=== PATIENT | female | born 1975 | race Caucasian/White ===

== ENCOUNTER → 2016-12-10 | Outpatient (REF) | payer OTHER ==
[2016-12-10 16:02] LABS: FREE T4 1.4 NG/DL (0.76-1.46)
== END ==
LOC: M LABDRAW1 15:24
PROVIDERS: ATTEND Physician Assistant Medical
DX: E89.0 Postprocedural hypothyroidism (principal)

== ENCOUNTER → 2016-12-31 | Outpatient (REF) | payer OTHER | LOC: M SFHCWAGY 11:37 | PROVIDERS: ATTEND Nurse Practitioner Women's Health | DX: Z12.4 Encounter for screening for malignant neoplasm of cervix (principal); Z11.3 Encounter for screening for infections with a predominantly sexual mode of transmission; R87.610 Atypical squamous cells of undetermined significance on cytologic smear of cervix (ASC-US); N89.8 Other specified noninflammatory disorders of vagina | CPT/HCPCS: 87070; 87491; 87591; G0123 ==

== ENCOUNTER → 2017-02-09 | Outpatient (REF) | payer OTHER ==
[2017-02-09 16:29] LABS: FREE T4 1.24 NG/DL (0.76-1.46)
== END ==
LOC: M LABDRAW1 14:34
PROVIDERS: ATTEND Physician Assistant Medical
DX: E89.0 Postprocedural hypothyroidism (principal)

== ENCOUNTER → 2017-02-09 | Outpatient (REF) | payer OTHER | LOC: M SFHCWAGY 14:40 | PROVIDERS: ATTEND Nurse Practitioner Women's Health | DX: R87.618 Other abnormal cytological findings on specimens from cervix uteri (principal) ==

== ENCOUNTER → 2017-06-09 | Outpatient (REF) | payer OTHER ==
[2017-06-09 16:30] LABS: FREE T4 1.54 NG/DL (0.76-1.46)
== END ==
LOC: M LABDRAW1 15:37
PROVIDERS: ATTEND Physician Assistant Medical
DX: E89.0 Postprocedural hypothyroidism (principal)

== ENCOUNTER → 2018-01-01 | Outpatient (REF) | payer OTHER ==
[2018-01-05 14:13] LABS: HPV HYBRID CAPTURE II Positive (Negative)
== END ==
LOC: M SFHCWAGY 11:51
DX: Z12.4 Encounter for screening for malignant neoplasm of cervix (principal)

== ENCOUNTER → 2018-02-18 | Outpatient (REF) | payer OTHER ==
[2018-02-18 12:59] LABS: FREE T4 1.01 NG/DL (0.76-1.46)
== END ==
LOC: M LABDRAW1 11:44
DX: E89.0 Postprocedural hypothyroidism (principal)
CPT/HCPCS: 84443

== ENCOUNTER → 2018-03-25 | Outpatient (CLI) | payer OTHER | LOC: M WHC 13:43 | DX: D25.9 Leiomyoma of uterus, unspecified (principal); R68.81 Early satiety; N92.6 Irregular menstruation, unspecified | CPT/HCPCS: 76830 ==

== ENCOUNTER → 2018-04-21 | Outpatient (REF) | payer OTHER | LOC: M LAB REF 12:31 | DX: J02.9 Acute pharyngitis, unspecified (principal) ==

== ENCOUNTER → 2018-04-23 | Outpatient (CLI) | payer OTHER ==
[2018-04-23 17:00] LABS: FREE T4 1.02 NG/DL (0.76-1.46)
== END ==
LOC: M WUC 13:33
DX: E89.0 Postprocedural hypothyroidism (principal)
CPT/HCPCS: 84443

== ENCOUNTER → 2018-06-29 | Outpatient (REF) | payer OTHER ==
[2018-06-29 17:36] LABS: BASO # 0.1 10^3/uL (0.0-0.2); BASO % 1.2 % (0.0-1.0); EOS # 0.1 10^3/uL (0.0-0.50); HEMATOCRIT 38.4 % (36.0-47.0); HEMOGLOBIN 12.8 g/dl (12.0-15.5); IMMATURE GRANULOCYTE % 0.4 % (0-3.0); LYMPH # 1.2 10^3/uL (1.5-4.5); LYMPH % 15.2 % (24.0-44.0); MEAN CORPUSCULAR HEMOGLOBIN 30.6 pg (27.0-33.0); MEAN CORPUSCULAR HGB CONC 33.3 g/dl (32.0-36.5); MEAN CORPUSCULAR VOLUME 91.9 fl (80.0-96.0); MONO # 0.6 10^3/uL (0.0-0.8); MONO % 6.9 % (0.0-5.0); NEUTROPHILS # 6.1 10^3/uL (1.8-7.7); NEUTROPHILS % 75.3 % (36.0-66.0); PLATELET COUNT, AUTOMATED 288 10^3/uL (150-450); RED BLOOD COUNT 4.18 10^6/uL (4.00-5.40); RED CELL DISTRIBUTION WIDTH 12.8 % (11.5-14.5); WHITE BLOOD COUNT 8.1 10^3/uL (4.0-10.0)
[2018-06-29 18:07] LABS: FOLLICLE STIMULATING HORMONE < 0.3 mIU/mL; LUTEINIZING HORMONE < 0.1 mIU/mL
== END ==
LOC: M SFHCWAGY 14:35
DX: R23.2 Flushing (principal); R61 Generalized hyperhidrosis

== ENCOUNTER → 2018-08-23 | Outpatient (REF) | payer OTHER ==
[2018-08-23 13:57] LABS: FREE T4 1.15 NG/DL (0.76-1.46)
== END ==
LOC: M LABDRAW1 12:13
DX: E89.0 Postprocedural hypothyroidism (principal)

== ENCOUNTER → 2018-12-27 | Outpatient (REF) | payer OTHER ==
[2018-12-27 14:18] LABS: ALBUMIN 3.6 GM/DL (3.2-5.2); ALT/SGPT 29 U/L (12-78); BILIRUBIN,TOTAL 0.1 MG/DL (0.2-1.0); BLOOD UREA NITROGEN 12 MG/DL (7-18); CALCIUM LEVEL 8.7 MG/DL (8.5-10.1); CARBON DIOXIDE LEVEL 26 MEQ/L (21-32); CHLORIDE LEVEL 106 MEQ/L (98-107); GLOMERULAR FILTRATION RATE > 60.0 (>58); GLUCOSE, FASTING 76 MG/DL (70-100); POTASSIUM SERUM 4.5 MEQ/L (3.5-5.1); SODIUM LEVEL 139 MEQ/L (136-145); TOTAL PROTEIN 6.9 GM/DL (6.4-8.2)
== END ==
LOC: M SFHCPLAZ 10:08
PROVIDERS: ATTEND Nurse Practitioner Adult Health
DX: Z00.00 Encounter for general adult medical examination without abnormal findings (principal)

== ENCOUNTER → 2019-02-21 | Outpatient (REF) | payer OTHER ==
[2019-02-21 17:06] LABS: FREE T4 1.36 NG/DL (0.76-1.46); THYROID STIMULATING HORMONE 0.27 uIU/ML (0.358-3.740)
== END ==
LOC: M LABDRAW1 15:34 → M LAB REF 15:34
PROVIDERS: ATTEND Nurse Practitioner Family
DX: E89.0 Postprocedural hypothyroidism (principal)

== ENCOUNTER → 2019-02-28 | Outpatient (REF) | payer OTHER ==
[2019-03-02 14:26] LABS: HPV HYBRID CAPTURE II Negative (Negative)
== END ==
LOC: M SFHCWAGY 11:37
PROVIDERS: ATTEND Nurse Practitioner Women's Health
DX: Z12.4 Encounter for screening for malignant neoplasm of cervix (principal)
CPT/HCPCS: 87624; G0123

== ENCOUNTER → 2019-02-28 | Outpatient (CLI) | payer OTHER ==
--- NOTE | 2019-02-28 14:07 | REPMRS ---
Patient History The patient states she had a clinical breast exam in 02/2019. Patient is nulliparous. Family history of breast cancer under age 50 in maternal aunt. Took hormonal contraceptives for 26 years. Digital Woman Screen Mammo: February 28, 2019 - Exam #: [id number] Bilateral CC and MLO view(s) were taken. Technologist: Sosa Castellanos, Technologist Prior study comparison: February 26, 2018, digital woman screen mammo performed at [facility]. March 21, 2016, digital woman screen mammo performed at [facility]. September 22, 2012, digital woman screen mammo performed at [facility]. FINDINGS: There are scattered fibroglandular densities. There has been no change in the appearance of the mammogram from the prior studies. There is a mild amount of scattered fibroglandular density which is fairly symmetric. There is no interval development of dominant mass, architectural distortion, or clustered microcalcification suggestive of malignancy. 3-D tomosynthesis shows no additional findings. Assessment: BI-RADS/ACR category 1 mammogram. Negative Mammogram. Recommendation Routine screening mammogram of both breasts in 1 year (for women over age 40). This patient's Lifetime Breast Cancer RIsk is estimated at 19.5 %. This mammogram was interpreted with the aid of an FDA-approved computer-aided dectection system. Electronically Signed By: Georges Hernandez MD 02/28/19 [id number]
== END ==
LOC: M WHC 11:12
PROVIDERS: ATTEND Nurse Practitioner Women's Health
DX: Z12.31 Encounter for screening mammogram for malignant neoplasm of breast (principal); Z92.0 Personal history of contraception

== ENCOUNTER 2019-07-07 03:14 | Emergency (ER) | payer OTHER ==
[~2019-07-07] VITALS: Ht 162.6 cm; Wt 63.6 kg
[2019-07-07] MEDS ORDERED: ZOFR4TAB16 PO (03:18)
[2019-07-07] MEDS ORDERED: LEVO125T4 PO (03:18)
[2019-07-07] MEDS ORDERED: NS 1,000 ML IV ONE (03:45)
[2019-07-07] MEDS ORDERED: ONDANSETRON 4MG/2ML VIAL (J2405) IV ONE (03:45)
[2019-07-07] MEDS: MORPHINE 4 MG/ML 1ML VIAL/SYRINGE (J2270) IV PRN ×2 (04:00→05:21)
[2019-07-07 04:40] LABS: BLOOD UREA NITROGEN 6 MG/DL (7-18); CALCIUM LEVEL 8.8 MG/DL (8.5-10.1); CARBON DIOXIDE LEVEL 24 MEQ/L (21-32); CHLORIDE LEVEL 101 MEQ/L (98-107); CREATININE FOR GFR 0.65 MG/DL (0.55-1.30); GLOMERULAR FILTRATION RATE > 60.0 (>58); GLUCOSE, FASTING 110 MG/DL (70-100); POTASSIUM SERUM 3.6 MEQ/L (3.5-5.1); SODIUM LEVEL 135 MEQ/L (136-145)
[2019-07-07 04:41] LABS: ALT/SGPT 28 U/L (12-78); BILIRUBIN,DIRECT 0.1 MG/DL (0.0-0.2); BILIRUBIN,TOTAL 0.3 MG/DL (0.2-1.0); TOTAL PROTEIN 6.4 GM/DL (6.4-8.2)
[2019-07-07 04:42] LABS: ALBUMIN 3.2 GM/DL (3.2-5.2); LIPASE 44 U/L (73-393)
[2019-07-07 04:48] LABS: HCG, SERUM QUALITATIVE NEGATIVE (NEGATIVE)
[2019-07-07 04:49] LABS: HEMATOCRIT 43.7 % (36.0-47.0); HEMOGLOBIN 15.1 g/dl (12.0-15.5); WHITE BLOOD COUNT 4.9 10^3/uL (4.0-10.0)
[2019-07-07 04:50] LABS: MEAN CORPUSCULAR HEMOGLOBIN 32.1 pg (27.0-33.0); MEAN CORPUSCULAR HGB CONC 34.6 g/dl (32.0-36.5); PLATELET COUNT, AUTOMATED 166 10^3/uL (150-450)
[2019-07-07 05:05] LABS: ATYPICAL LYMPH 2 % (0-5); BASOPHILS 1 % (0-4); LYMPHOCYTES 5 % (16-52); METAMYELOCYTES 3 % (0-0); MONOCYTES 7 % (0-8); NEUTROPHILS 73 % (35-75); PLATELET CLUMPS SMALL AMT; PLATELET ESTIMATE NORMAL (NORMAL)
[2019-07-07 05:06] LABS: TOXIC VACUOLATION 1+
[2019-07-07] MEDS ORDERED: ISOVUE-370 76% 100ML VIAL (Q9967) As Ordered ONE (05:28)
--- NOTE | 2019-07-07 06:21 | REPVR ---
EXAM: CT Abdomen and Pelvis With Contrast EXAM DATE/TIME: 07/07/2019 5:42 AM CLINICAL HISTORY: 43 years old, female; Abdominal pain; Generalized; Additional info: Diverticulitis v colitis TECHNIQUE: Imaging protocol: Axial computed tomography images of the abdomen and pelvis with intravenous contrast. Coronal and sagittal reformatted images were created and reviewed. Radiation optimization: All CT scans at this facility use at least one of these dose optimization techniques: automated exposure control; mA and/or kV adjustment per patient size (includes targeted exams where dose is matched to clinical indication); or iterative reconstruction. Contrast material: ISOVUE 370;Contrast volume: 100 ml;Contrast route: IV; COMPARISON: CT ABD PELVIS W/O FOL BY WIT 10/04/2013 9:04 AM FINDINGS: Liver: There is 1.6 x 1.3 cm hypoattenuation in the medial segment of the left hepatic lobe abutting the falciform ligament and 9 x 6 mm hypodensity in the lateral segment of the left hepatic lobe abutting the falciform ligament likely representing normal variant perfusion defects. This is unchanged since the prior exam. Gallbladder and bile ducts: There is no biliary ductal dilatation. Pancreas: The pancreatic head and uncinate process are heterogeneous with slight hypoattenuation. There is no pancreatic ductal dilatation. Spleen: Normal. No splenomegaly. Adrenals: There is a 1.4 x 1.3 cm left adrenal gland nodule in the lateral limb (axial image 36). Kidneys and ureters: Normal. No hydronephrosis. Stomach and bowel: There is apparent diffuse colonic wall thickening with more significant thickening seen in the distal ascending and transverse colon with pericolonic stranding and edema. Appendix: No evidence of appendicitis. Intraperitoneal space: There is a small amount of free pelvic fluid. Vasculature: Normal. No abdominal aortic aneurysm. Lymph nodes: Normal. No enlarged lymph nodes. Bladder: The urinary bladder is not distended limiting its evaluation. Reproductive: Unremarkable as visualized. Bones/joints: No acute fracture. No dislocation. Soft tissues: Unremarkable. IMPRESSION: 1. Pancolitis most significantly involving the ascending and transverse colon. 2. No diverticular disease seen. No appendicitis seen. 3. Small amount of free pelvic fluid could be physiologic or reactive. 4. Heterogeneity and mild hypoattenuation in the pancreatic head and uncinate process. Underlying pathology cannot be excluded. Correlate clinically. MRI of the pancreas contrast may be obtained for further evaluation. 5. 1.4 x 1.3 cm indeterminate left adrenal gland nodule in the lateral limb, new finding since 10/04/2013. Further characterization with MRI is suggested. Electronically signed by: Wade Marti On 07/07/2019 06:20:39 AM
[2019-07-07] MEDS ORDERED: CIPR-249 PO (08:35)
[2019-07-07 08:59] VITALS: BP 129/91
[2019-07-07] MEDS ORDERED: CIPROFLOXACIN 500 MG TAB PO ONE (09:00)
--- NOTE | 2019-07-10 20:38 | ED PDOC ---
Post-Departure Follow-Up boy hayden faxed formal report of ct abd/p for fu Diana Sanford MD Jul 10, 2019 20:38
== END 2019-07-07 09:05 | disposition home or self-care (01) ==
LOC: M ED 03:14
DX: A02.0 Salmonella enteritis (principal); K51.019 Ulcerative (chronic) pancolitis with unspecified complications; E05.00 Thyrotoxicosis with diffuse goiter without thyrotoxic crisis or storm; Z79.899 Other long term (current) drug therapy; Z88.2 Allergy status to sulfonamides
CPT/HCPCS: 74177; 80048; 80076; 83605; 83690; 84703; 85025; 87507; 93041; 96361; 96374; 96375; 99284; J2270; J2405; Q9967

== ENCOUNTER → 2019-08-22 | Outpatient (REF) | payer OTHER ==
[~2019-08-22] MED LIST: CIPR-249 PO; LEVO125T4 PO; ZOFR4TAB16 PO
[2019-08-22 17:03] LABS: FREE T4 1.36 NG/DL (0.76-1.46); THYROID STIMULATING HORMONE 0.039 uIU/ML (0.358-3.740)
== END ==
LOC: M LABDRAW1 15:56
PROVIDERS: ATTEND Nurse Practitioner Family
DX: E89.0 Postprocedural hypothyroidism (principal)

== ENCOUNTER → 2019-12-23 | Outpatient (REF) | payer OTHER ==
[2019-12-23 14:32] LABS: FREE T4 1.42 NG/DL (0.76-1.46); THYROID STIMULATING HORMONE 0.754 uIU/ML (0.358-3.740)
== END ==
LOC: M LABDRAW1 12:53
PROVIDERS: ATTEND Nurse Practitioner Family
DX: E89.0 Postprocedural hypothyroidism (principal)

== ENCOUNTER → 2020-02-08 | Outpatient (CLI) | payer OTHER | LOC: M CARPUL 08:25 | PROVIDERS: ATTEND Nurse Practitioner Adult Health | DX: Z53.9 Procedure and treatment not carried out, unspecified reason (principal) ==

== ENCOUNTER → 2020-05-02 | Outpatient (CLI) | payer OTHER ==
[2020-05-02 14:45] LABS: FREE T4 1.29 NG/DL (0.76-1.46); THYROID STIMULATING HORMONE 1.53 uIU/ML (0.358-3.740)
== END ==
LOC: M PLALAB 10:58
PROVIDERS: ATTEND Nurse Practitioner Family
DX: E89.0 Postprocedural hypothyroidism (principal)

== ENCOUNTER → 2020-05-29 | Outpatient (CLI) | payer OTHER ==
--- NOTE | 2020-05-29 12:28 | REPMRS ---
Patient History The patient states she had a clinical breast exam in May 2020.Family history of breast cancer under age 50 in maternal aunt. Took hormonal contraceptives for 26 years. 3D TOMOSYNTHESIS WAS PERFORMED. The [employer]eline Real lifetime risk for breast cancer is 19.2%. VOLOTFA HUGO B. Digital Woman Screen Mammo: May 29, 2020 - Exam #: [id number] Bilateral CC and MLO view(s) were taken. Technologist: Yamile Arechiga, Technologist Prior study comparison: February 28, 2019, bilateral digital woman screen mammo performed at [facility]. February 26, 2018, digital woman screen mammo performed at [facility]. FINDINGS: The breast tissue is heterogeneously dense. This may lower the sensitivity of mammography. There has been no change in the appearance of the mammogram from the prior studies. There is a moderate amount of residual fibroglandular tissue which is fairly symmetric. There is no interval development of dominant mass, areas of architectural distortion, or clustered microcalcification typical of malignancy. Assessment: BI-RADS/ACR category 1 mammogram. Negative Mammogram. Recommendation Routine screening mammogram in 1 year (for women over age 40). This mammogram was interpreted with the aid of an FDA-approved computer-aided dectection system. Electronically Signed By: Ayan Granados MD 05/29/20 [id number]
== END ==
LOC: M WHC 09:37
PROVIDERS: ATTEND Nurse Practitioner Women's Health
DX: Z12.31 Encounter for screening mammogram for malignant neoplasm of breast (principal)

== ENCOUNTER → 2020-10-31 | Outpatient (CLI) | payer OTHER ==
[2020-10-31 11:14] LABS: FREE T4 1.23 NG/DL (0.76-1.46); THYROID STIMULATING HORMONE 0.946 uIU/ML (0.358-3.740)
== END ==
LOC: M PLALAB 09:06
PROVIDERS: ATTEND Nurse Practitioner Family
DX: E89.0 Postprocedural hypothyroidism (principal)

== ENCOUNTER → 2021-08-01 | Outpatient (REF) | payer OTHER | LOC: M WUC 11:13 | PROVIDERS: ATTEND Physician Assistant | DX: N39.0 Urinary tract infection, site not specified (principal) ==

== ENCOUNTER 2021-10-08 08:49 | Emergency (ER) | payer OTHER ==
[~2021-10-08] VITALS: Ht 162.6 cm; Wt 66.5 kg
--- OUTSIDE RECORDS SUMMARY | 2021-10-08 08:55 | CCD | Continuity of Care Document ---
Author Author Mireya DONNELLY P.AMary Organization Unknown Address [address] [place] [address] [place] [address] Phone [phone] Care Team Providers Care Valet Name Role Phone Jeff De Jesus MD [facility] [phone] Problems Active Problems Provider Date Cystitis Talia Diaz Onset: 2009 Social History Type Date Description Comments Sex Unknown ETOH Use Occasionally consumes alcohol Tobacco Use Start: Unknown No quit 2006 Tobacco Use Start: Unknown The Patient Has Never Vaped Smoking Status Reviewed: 08/01/21 The Patient Has Never Vaped Allergies, Adverse Reactions, Alerts Active Allergies Criticality Reaction | Severity Comments Date Sulfa Unable to assess criticality rash 06/04/2010 Medications Active Medications SIG Qnty Indications Ordering Provide r Date Macrobid 100mg Capsules 1 cap by mouth twice a day for 5 days with food 10caps Jeff basurto JR., M.D. 08/05/2021 Diflucan 150mg Tablets 1 tab by mouth, may repeat in 3-5 days if needed 2tabs N39.0 Jeff De Jesus JR., M.D. 08/01/2021 Synthroid 137mcg Tablets ever y day Unknown History Medications Cephalexin 500mg Tablets 1 tab by mouth twice daily x 7 days 14tabs N39.0 Carolin Chavez JR. 08/01/2021 - 08/05/2021 Pyridium 200mg Tablets 1 tab by mouth three times a day after meals for 2 days 6tabs N39.0 Jeff De Jesus JR., M.D. 08/01/2021 - 08/03/2021 Immunizations Description No Information Available Vital Signs Date Vital Result Comment 08/01/2021 9:09am BP Systolic 141 mmHg BP Diastolic 86 mmHg Heart Rate 67 /min Respiratory Rate 16 /min O2 % BldC Oximetry 99 % Body Temperature 97.9 F Weight 135.00 lb Height 64 inches 5'4" BMI (Body Mass Index) 23.2 kg/m2 Pain Level 6 04/21/2018 8:49am BP Systolic 134 mmHg BP Diastolic 87 mmHg Heart Rate 86 /min Respiratory Rate 18 /min O2 % BldC Oximetry 98 % Body Temperature 97.7 F Weight 160.00 lb Height 64 inches 5'4" BMI (Body Mass Index) 27.5 kg/m2 Pain Level 6 Results Test Acquired Date Facility Test Result H/L Range Note Laboratory test finding 08/01/2021 [id number] [place], [place] [id number] [phone] Urine Culture FULL REPORT IN L <SEE NOTE> Normal 1 1 FULL REPORT IN LAB NOTES ([facility] W and [facility]). ORGANISM 1: STAPHYLOCOCCUS LUGDUNENSIS COLONY COUNT >100,000 ORGANISM 1: STAPHYLOCOCCUS LUGDUNENSIS STAPHYLOCOCCUS LUGDUNENSIS: REACTION ICR (INDUCIBLE CC RESISTANCE) IV ICR TEST RESULT TETRACYCLINE PO 250 mg qid <=1 S PENICILLIN G IV 1 mu q6H >=0.5 R PENICILLIN G IV 1 mu q6h >=0.5 R PENICILLIN G PO 250mg q6h fasting >=0.5 R TRIMETHOPRIM/SULFAMETHOXAZOLE IV 160mg TMP & 800mg SMXq6h <=10 S TRIMETHOPRIM/SULFAMETHOXAZOLE PO Bactrim DS Bid <=10 S ERYTHROMYCIN IV 500mg q6h <=0.25 S ERYTHROMYCIN PO 500mg q6h <=0.25 S GENTAMICIN IV 80mg q8h <=0.5 S CLINDAMYCIN IV 600mg q6h 0.25 S CLINDAMYCIN PO 150mg q6h 0.25 S NITROFURANTOIN PO 100mg BID <=16 S OXACILLIN IV 500mg q6h >=4 R VANCOMYCIN IV 500mg q8h <=0.5 S LINEZOLID (ZYVOX) IV 600MG Q12HR 1 S LINEZOLID (ZYVOX) PO 600MG Q12HR 1 S An isolate with a (+) POSITIVE ICR test is considered CLINDAMYCIN RESISTANT; however, clindamycin may still be effective in some patients. An isolate with a (-) NEGATIVE ICR test is considered CLIDAMYCIN SENSITIVE. Procedures Date Code Description Status 08/01/2021 32062 Office/Outpatient New [facility] 30 -44 Minutes Completed Medical Devices Description No Information Available Encounters Type Date Location Provider Dx Diagnosis Office Visit 08/01/2021 8:25a Main Office Talia Renee N3 9.0 Urinary tract infection, site not specified Assessments Date Code Description Provider 08/01/2021 N39.0 Urinary tract infection, site no t specified Talia Renee Plan of Treatment No Information Available Functional Status Description No Information Available Mental Status Description No Information Available Referrals Description No Information Available
--- OUTSIDE RECORDS SUMMARY | 2021-10-08 08:55 | CCD | Continuity of Care Document ---
Author Author Mireya DONNELLY.Elsie Organization Unknown Address [address] [place] [address] Phone [phone] Care Team Providers Care Flour Blender Name Role Phone Jeff De Jesus MD [facility] [phone] Problems Active Problems Provider Date Cystitis Talia [...] SIG Qnty Indications Ordering Provide r Date Cephalexin 500mg Tablets 1 tab by mouth twice daily x 7 days 14tabs N39.0 Carolin Chavez JR. 08/01/2021 Pyridium 200mg Tablets 1 tab by mouth three times a day after meals for 2 days 6tabs N39.0 Jeff De Jesus JR., M.D. 08/01/2021 Diflucan 150mg Tablets 1 tab by mouth, may repeat in 3-5 days if needed 2tabs N39.0 Jeff De Jesus JR., M.D. 08/01/2021 Synthroid 137mcg Tablets ever y day Unknown Immunizations Description No Information Available Vital Signs [...] H/L Range Note Laboratory test finding 08/01/2021 [facility] [address] [place] [address] [phone] Urine Culture <pending> Procedures Date Code Description Status 08/01/2021 41321 Office/Outpatient New On license of [facility] 30 -44 Minutes Completed Medical Devices Description [...]
--- OUTSIDE RECORDS SUMMARY | 2021-10-08 08:56 | CCD | Continuity of Care Document ---
Author Author Mireya DONNELLY.Elsie Organization Unknown Address [address] [place] [address] Phone [phone] Care Team Providers Care Order Management Specialist Name Role Phone Jeff De Jesus MD [facility] [phone] Problems Active Problems Provider Date Cystitis Talia [...] H/L Range Note Laboratory test finding 08/01/2021 [facility] [address] [place] [address] [phone] Urine Culture <pending> Procedures Date Code Description Status 08/01/2021 66262 Office/Outpatient New [facility] 30 -44 Minutes Completed Medical Devices Description [...]
--- OUTSIDE RECORDS SUMMARY | 2021-10-08 08:56 | CCD ---
Author Author [facility] Organization [facility] Address Unknown Phone Unavailable Care Team Providers Care Cable Engineer Outside Plant Name Role Phone LUÍS, B SRIKANTH INSPECTOR FIBROUS WALLBOARD Unavailable Unavailable LUÍS, B SRIKANTH INSPECTOR FIBROUS WALLBOARD Unavailable Unavailable LUÍS, B SRIKANTH INSPECTOR FIBROUS WALLBOARD Unavailable Unavailable LUÍS, B SRIKANTH INSPECTOR FIBROUS WALLBOARD Unavailable Unavailable LUÍS, B SRIKANTH INSPECTOR FIBROUS WALLBOARD Unavailable Unavailable LUÍS, B SRIKANTH INSPECTOR FIBROUS WALLBOARD Unavailable Unavailable LUÍS, B SRIKANTH INSPECTOR FIBROUS WALLBOARD Unavailable Unavailable LUÍS, B SRIKANTH INSPECTOR FIBROUS WALLBOARD Unavailable Unavailable LUÍS, B SRIKANTH INSPECTOR FIBROUS WALLBOARD Unavailable Unavailable LUÍS, B SRIKANTH INSPECTOR FIBROUS WALLBOARD Unavailable Unavailable LUÍS, B SRIKANTH INSPECTOR FIBROUS WALLBOARD Unavailable Unavailable LUÍS, B SRIKANTH INSPECTOR FIBROUS WALLBOARD Unavailable Unavailable LUÍS, B SRIKANTH INSPECTOR FIBROUS WALLBOARD Unavailable Unavailable LUÍS, B SRIKANTH INSPECTOR FIBROUS WALLBOARD Unavailable Unavailable LUÍS, B SRIKANTH INSPECTOR FIBROUS WALLBOARD Unavailable Unavailable LUÍS, B SRIKANTH INSPECTOR FIBROUS WALLBOARD Unavailable Unavailable LUÍS, B SRIKANTH INSPECTOR FIBROUS WALLBOARD Unavailable Unavailable LUÍS, B SRIKANTH INSPECTOR FIBROUS WALLBOARD Unavailable Unavailable LUÍS, B SRIKANTH INSPECTOR FIBROUS WALLBOARD Unavailable Unavailable LUÍS, B SRIKANTH INSPECTOR FIBROUS WALLBOARD Unavailable Unavailable LUÍS, B SRIKANTH INSPECTOR FIBROUS WALLBOARD Unavailable Unavailable LUÍS, B SRIKANTH INSPECTOR FIBROUS WALLBOARD Unavailable Unavailable LUÍS, B SRIKANTH INSPECTOR FIBROUS WALLBOARD Unavailable Unavailable LUÍS, B SRIKANTH INSPECTOR FIBROUS WALLBOARD Unavailable Unavailable LUÍS, B SRIKANTH INSPECTOR FIBROUS WALLBOARD Unavailable Unavailable LUÍS, B SRIKANTH INSPECTOR FIBROUS WALLBOARD Unavailable Unavailable LUÍS, B SRIKANTH INSPECTOR FIBROUS WALLBOARD Unavailable Unavailable LUÍS, B SRIKANTH INSPECTOR FIBROUS WALLBOARD Unavailable Unavailable LUÍS, B SRIKANTH INSPECTOR FIBROUS WALLBOARD Unavailable Unavailable LUÍS, B SRIKANTH INSPECTOR FIBROUS WALLBOARD Unavailable Unavailable LUÍS, B SRIKANTH INSPECTOR FIBROUS WALLBOARD Unavailable Unavailable LUÍS, B SRIKANTH INSPECTOR FIBROUS WALLBOARD Unavailable Unavailable LUÍS, B SRIKANTH INSPECTOR FIBROUS WALLBOARD Unavailable Unavailable LUÍS, B SRIKANTH INSPECTOR FIBROUS WALLBOARD Unavailable Unavailable LUÍS, B SRIKANTH INSPECTOR FIBROUS WALLBOARD Unavailable Unavailable LUÍS, B SRIKANTH INSPECTOR FIBROUS WALLBOARD Unavailable Unavailable LUÍS, B SRIKANTH INSPECTOR FIBROUS WALLBOARD Unavailable Unavailable LUÍS, B SRIKANTH INSPECTOR FIBROUS WALLBOARD Unavailable Unavailable LÍUS, B SRIKANTH INSPECTOR FIBROUS WALLBOARD Unavailable Unavailable LUÍS, B SRIKANTH INSPECTOR FIBROUS WALLBOARD Unavailable Unavailable LUÍS, B SRIKANTH INSPECTOR FIBROUS WALLBOARD Unavailable Unavailable LUÍS, B SRIKANTH INSPECTOR FIBROUS WALLBOARD Unavailable Unavailable LUÍS, B SRIKANTH INSPECTOR FIBROUS WALLBOARD Unavailable Unavailable LUÍS, B SRIKANTH INSPECTOR FIBROUS WALLBOARD Unavailable Unavailable LUÍS, B SRIKANTH INSPECTOR FIBROUS WALLBOARD Unavailable Unavailable LUÍS, B SRIKANTH INSPECTOR FIBROUS WALLBOARD Unavailable Unavailable LUÍS, B SRIKANTH INSPECTOR FIBROUS WALLBOARD Unavailable Unavailable LUÍS, B SRIKANTH INSPECTOR FIBROUS WALLBOARD Unavailable Unavailable LUÍS, B SRIKANTH INSPECTOR FIBROUS WALLBOARD Unavailable Unavailable LUÍS, B SRIKANTH INSPECTOR FIBROUS WALLBOARD Unavailable Unavailable LUÍS, B SRIKANTH INSPECTOR FIBROUS WALLBOARD Unavailable Unavailable LUÍS, B SRIKANTH INSPECTOR FIBROUS WALLBOARD Unavailable Unavailable LUÍS, B SRIKANTH INSPECTOR FIBROUS WALLBOARD Unavailable Unavailable LUÍS, B SRIKANTH INSPECTOR FIBROUS WALLBOARD Unavailable Unavailable LUÍS, B SRIKANTH INSPECTOR FIBROUS WALLBOARD Unavailable Unavailable LUÍS, B SRIKANTH INSPECTOR FIBROUS WALLBOARD Unavailable Unavailable LUÍS, B SRIKANTH INSPECTOR FIBROUS WALLBOARD Unavailable Unavailable LUÍS, B SRIKANTH INSPECTOR FIBROUS WALLBOARD Unavailable Unavailable LUÍS, B SRIKANTH INSPECTOR FIBROUS WALLBOARD Unavailable Unavailable LUÍS, B SRIKANTH INSPECTOR FIBROUS WALLBOARD Unavailable Unavailable LUÍS, B SRIKANTH INSPECTOR FIBROUS WALLBOARD Unavailable Unavailable LUÍS, B SRIKANTH INSPECTOR FIBROUS WALLBOARD Unavailable Unavailable CONY, DANIEL PA Unavailable Unavailable CONY, DANIEL PA Unavailable Unavailable CONY, DANIEL PA Unavailable Unavailable CONY, DANIEL PA Unavailable Unavailable CONY, DANIEL PA Unavailable Unavailable CONY, DANIEL PA Unavailable Unavailable CONY, DANIEL PA Unavailable Unavailable CONY, DANIEL PA Unavailable Unavailable CONY, DANIEL PA Unavailable Unavailable CONY, DANIEL PA Unavailable Unavailable CONY, DANIEL PA Unavailable Unavailable CONY, DANIEL PA Unavailable Unavailable CONY, DANIEL PA Unavailable Unavailable CONY, DANIEL PA Unavailable Unavailable CONY, DANIEL PA Unavailable Unavailable CONY, DANIEL PA Unavailable Unavailable CONY, DANIEL PA Unavailable Unavailable CONY, DANIEL PA Unavailable Unavailable CONY, DANIEL PA Unavailable Unavailable CONY, DANIEL PA Unavailable Unavailable CONY, DANIEL PA Unavailable Unavailable CONY, DANIEL PA Unavailable Unavailable CONY, DANIEL PA Unavailable Unavailable CONY, DANIEL PA Unavailable Unavailable CONY, DANIEL PA Unavailable Unavailable CONY, DANIEL PA Unavailable Unavailable CONY, DANIEL PA Unavailable Unavailable CONY, DANIEL PA Unavailable Unavailable CONY, DANIEL PA Unavailable Unavailable CONY, DANIEL PA Unavailable Unavailable CONY, DANIEL PA Unavailable Unavailable CONY, DANIEL PA Unavailable Unavailable CONY, DANIEL PA Unavailable Unavailable CONY, DANIEL PA Unavailable Unavailable CONY, DANIEL PA Unavailable Unavailable CONY, DANIEL PA Unavailable Unavailable CHRISTIANO, MIGUELITO CARIN PA-C Unavailable Unavailable CHRISTIANO, MIGUELITO CARIN PA-C Unavailable Unavailable CHRISTIANO, MIGUELITO CARIN PA-C Unavailable Unavailable CHRISTIANO, MIGUELITO CARIN PA-C Unavailable Unavailable CHRISTIANO, MIGUELITO CARIN PA-C Unavailable Unavailable CHRISTIANO, MIGUELITO CARIN PA-C Unavailable Unavailable CHRISTIANO, MIGUELITO CARIN PA-C Unavailable Unavailable CHRISTIANO, MIGUELITO CARIN PA-C Unavailable Unavailable CHRISTIANO, MIGUELITO CARIN PA-C Unavailable Unavailable CHRISTIANO, MIGUELTIO CARIN PA-C Unavailable Unavailable Re-disclosure Warning The records that you are about to access may contain information from federally-assisted alcohol or drug abuse programs. If such information is present, then the following federally mandated warning applies: This information has been disclosed to you from records protected by federal confidentiality rules (42 CFR part 2). The federal rules prohibit you from making any further disclosure of this information unless further disclosure is expressly permitted by the written consent of the person to whom it pertains or as otherwise permitted by 42 CFR part 2. A general authorization for the release of medical or other information is NOT sufficient for this purpose. The Federal rules restrict any use of the information to criminally investigate or prosecute any alcohol or drug abuse patient.The records that you are about to access may contain highly sensitive health information, the redisclosure of which is protected by Article 27-F of the [place] State Public Health law. If you continue you may have access to information: Regarding HIV / AIDS; Provided by facilities licensed or operated by the [facility] Office of Mental Health; or Provided by the [facility] Office for People With Developmental Disabilities. If such information is present, then the following [facility] mandated warning applies: This information has been disclosed to you from confidential records which are protected by state law. State law prohibits you from making any further disclosure of this information without the specific written consent of the person to whom it pertains, or as otherwise permitted by law. Any unauthorized further disclosure in violation of state law may result in a fine or senior care sentence or both. A general authorization for the release of medical or other information is NOT sufficient authorization for further disc losure. Family History Family Member Name Family Member Gender Family Member Status Date o f Status Description Data Source(s) Unknown Female Problem [facility] ([facility]) Unknown Female Problem [facility] ([facility]) Unknown Unknown Problem [facility] ([facility]) matrnal aunt #1 Unknown Unknown Problem [facility] ([facility]) Encounters Encounter Providers Location Date Indications Data Source(s ) Outpatient Attender: DANIEL wyatt 08/01/2021 08:25:00 AM EDT [facility] ([facility] Outpatient Attender: CARIN ALVARADO PA-C 12/28/2020 03:36:00 PM [facility] Outpatient Attender: CARIN ALVARADO PA-C 12/20/2020 04:23:00 PM [facility] Outpatient Attender: CARIN ALVARADO PA-C 12/12/2020 04:21:00 PM [facility] Outpatient Attender: CARIN ALVARADO PA-C 11/28/2020 04:03:00 PM [facility] Outpatient Attender: CARIN ALVARADO PA-C 11/20/2020 04:24:00 PM [facility] Outpatient Attender: CARIN ALVARADO PA-C 11/09/2020 04:06:00 PM [facility] Outpatient Attender: SRIKANTH STALEY NP Physical Therapy 07:30:00 AM EST [facility] ([facility]) Outpatient Attender: CARIN ALVARADO PA-C 10/25/2020 04:45:00 PM [facility] Outpatient Attender: CARIN ALVARADO PA-C 10/12/2020 04:17:00 PM [facility] Outpatient Attender: CARIN ALVARADO PA-C 10/03/2020 10:24:00 AM [facility] Outpatient Attender: CARIN ALVARADO PA-C 09/26/2020 04:29:00 PM [facility] Outpatient Attender: CARIN ALVARADO PA-C 09/18/2020 04:47:00 PM [facility] Outpatient Attender: CARIN ALVARADO PA-C 09/12/2020 04:00:00 PM [facility] Outpatient Attender: CARIN ALVARADO PA-C 09/06/2020 10:42:00 AM [facility] Outpatient Attender: CARIN ALVARADO PA-C 08/21/2020 04:20:00 PM [facility] Outpatient Attender: CARIN ALVARADO PA-C 08/14/2020 04:02:00 PM [facility] Outpatient Attender: CARIN ALVARADO PA-C 08/06/2020 04:00:00 PM [facility] Outpatient Attender: CARIN ALVARADO PA-C 08/02/2020 04:25:00 PM [facility] Immunizations Vaccine Date Status Description Data Source(s) COVID-19 VACCINE Moderna 12/20/2020 12:00:00 AM EST completed [facility] Vaccine Series Complete: NOThis Data was Submitted to [facility] Via [employer]. INFLUENZA VIRUS VACCINE QUADRIVAL (6 MOS AND UP)/PF 08/09/2020 12:00:00 AM EDT completed [facility] Medications Medication Brand Name Start Date Product Form Dose Route Admi nistrative Instructions Pharmacy Instructions Status Indications Reaction Description Data Source(s) 60 mcg (15 mcg x 4)/0.5 mL 08/14/2021 12:00:00 AM EDT syring e 0 INJECT DIRECTED INJECT DIRECTED SOLD: 08/14/2021 [facility] NITROFURANTOIN, MACROCRYSTALS 25 MG / Ni trofurantoin, Monohydrate 75 MG Oral Capsule [Macrobid] Macrobid 08/05/2021 12:00:00 AM EDT ORAL active [facility] ([facility]) Phenazopyridine hydrochloride 200 MG Oral Tablet [Pyridium] Pyridium 08/01/2021 12:00:00 AM EDT ORAL completed [facility] ([facility]) Fluconazole 150 MG Oral Tablet [Diflucan] Diflucan 08/01/2021 1 2:00:00 AM EDT ORAL active [facility] ([facility], [facility]) Cephalexin 500 MG Oral Tablet Cephalexin 08/01/2021 12:00:00 AM EDT ORAL completed [facility] ([facility]) Insurance Providers Payer name Policy type / Coverage type Policy ID Covered alliance party ID Covered alliance party's relationship to cage Policy Cage Plan Information [employer] [id number] Self [employer] Risk [employer] [facility] [employer] Compensation [id number] Self [id number] R [id number] S [id number] R [id number] S [id number] ANSI-Commercial [id number] [facility] [id number] Umr (pr) Commercial [id number] Self [id number] [employer] (pr) [facility] Part B [id number] Self [id number] ANSI-Commercial [id number] ANSI-Commercial [id number] (pr) Commercial [id number] Self [id number] ANSI-Commercial [id number] Umr (pr) Commercial [id number] Self [id number] Umr/c/[employer] Part B [id number] Self [id number] [facility] [id number] SP [id number] [facility] [id number] SP [id number] [facility] [id number] SP [id number] [employer] [id number] SP [id number] [employer] (pr) Commercial [id number] Self [id number] [employer] (pr) Commercial [id number] Self [employer] W/C [id number] SP [id number] [employer] W/C [id number] SP [id number] [employer] [id number] Self [facility] [id number] SP [id number] R [id number] S [id number] SELF PAY UNAVAILABLE S UNAVAILA BLE Problems, Conditions, and Diagnoses Code Display Name Description Problem Type Effective Dates Data Source(s) F43.8 Other reactions to severe stress OTHER REACTIONS TO SEVERE STRESS Diagnosis 12/28/2020 03:36:00 PM [facility] Surgeries/Procedures Procedure Description Date Indications Data Source(s) OFFICE OUTPATIENT NEW 30 MINUTES 08/01/2021 12:00:00 A M EDT [facility] ([facility]) Results ID Date Data Source [id number] 08/01/2021 09:19:00 AM EDT [facility] ([facility]) Name Value Range Interpretation Code Description Data Ioana rce(s) Supporting Document(s) Bacteria identified in Urine by Culture Laboratory test result [facility] ([facility]) <content>FULL REPORT IN LAB NOTES ([facility] a nd [facility]).</content>
<content></content>
<content>ORGANISM 1: STAPHYLOCOCCUS LUGDUNENSIS</content>
<content></content>
<content>COLONY COUNT >100,000</content>
<content></content>
<content></content>
<content> ORGANISM 1: STAPHYLOCOCCUS LUGDUNENSIS</content>
<content></content>
<content>STAPHYLOCOCCUS LUGDUNENSIS: REACTION</content>
<content>ICR (INDUCIBLE CC RESISTANCE) IV ICR TEST RESULT</content>
<content>TETRACYCLINE PO 250 mg qid <=1 S</content>
<content>PENICILLIN G IV 1 mu q6H >=0.5 R</content>
<content>PENICILLIN G IV 1 mu q6h >=0.5 R</content>
<content>PENICILLIN G PO 250mg q6h fasting >=0.5 R</content>
<content>TRIMETHOPRIM/SULFAMETHOXAZOLE IV 160mg TMP & 800mg SMXq6h <=10 S</content>
<content>TRIMETHOPRIM/SULFAMETHOXAZOLE PO Bactrim DS Bid <=10 S</content>
<content>ERYTHROMYCIN IV 500mg q6h <=0.25 S</content>
<content>ERYTHROMYCIN PO 500mg q6h <=0.25 S</content>
<content>GENTAMICIN IV 80mg q8h <=0.5 S</content>
<content>CLINDAMYCIN IV 600mg q6h 0.25 S</content>
<content>CLINDAMYCIN PO 150mg q6h 0.25 S</content>
<content>NITROFURANTOIN PO 100mg BID <=16 S</content>
<content>OXACILLIN IV 500mg q6h >=4 R</content>
<content>VANCOMYCIN IV 500mg q8h <=0.5 S</content>
<content>LINEZOLID (ZYVOX) IV 600MG Q12HR 1 S</content>
<content>LINEZOLID (ZYVOX) PO 600MG Q12HR 1 S</content>
<content> An isolate with a (+) POSITIVE ICR test is considered</content>
<content>CLINDAMYCIN RESISTANT; however, clindamycin may still</content>
<content>be effective in some patients.</content>
< content>An isolate with a (-) NEGATIVE ICR test is considered</content>
<content>CLIDAMYCIN SENSITIVE.</content>
<content></content> ID Date Data Source [id number] 10/31/2020 09:13:00 AM EST [facility] ([facility] Name Value Range Interpretation Code Description Data Ioana rce(s) Supporting Document(s) Thyrotropin [Units/volume] in Serum or Plasma by Detec tion limit <= 0.05 mIU/L 0.946 uIU/ML 0.358-3.740 [facility] ([facility] <content>note:<nlbl:demographic_changed> </content>
<content></content> Thyroxine (T4) free [Mass/volume] in Serum or Plasma 1.23 ng/dL 0.76- 1.46 [facility] <content>note:<nlbl:demographic_changed> </content>
<content></content> Procedure Social History Code Duration Value Status Description Data Source(s ) Smoking 11/02/2020 12:00:00 AM EST Patient is a former smoker completed Patient is a former smoker [facility] ([facility] Vital Signs ID Date Data Source UNK Name Value Range Interpretation Code Description Data Source(s) Oxygen saturation in Arterial blood by Pulse oximetry 99 % 99 % [facility] ([facility]) Body temperature 97.9 [degF] 97.9 [degF] [facility] ([facility]) Body height 64 [in_i] 64 [in_i] [facility] ([facility]) 5'4" Body weight 135.00 [lb_av] 135.00 [lb_av] MEDEN T ([facility]) Body mass index (BMI) [Ratio] 23.2 kg/m2 23.2 k g/m2 [facility] ([facility]) Systolic blood pressure 141 mm[Hg] 141 mm[Hg] M [facility] ([facility]) Diastolic blood pressure 86 mm[Hg] 86 mm[Hg] [facility] ([facility]) Heart rate 67 /min 67 /min [facility] ([facility]) Respiratory rate 16 /min 16 /min [facility] ( [facility], [facility]) Systolic blood pressure 108 mm[Hg] 108 mm[Hg] M EDENT ([facility] Diastolic blood pressure 76 mm[Hg] 76 mm[Hg] [facility] ([facility] Heart rate 76 /min 76 /min [facility] ([facility] Body temperature 96.6 [degF] 96.6 [degF] [facility] ([facility] Body height 64 [in_i] 64 [in_i] [facility] ([facility] 5'4" Body weight 143.00 [lb_av] 143.00 [lb_av] MED[facility] T ([facility] Body mass index (BMI) [Ratio] 24.5 kg/m2 24.5 k g/m2 [facility] ([facility]
[2021-10-08] MEDS ORDERED: PRAZ1CAP PO (09:17)
[2021-10-08] MEDS ORDERED: MELA5TAB10 PO (09:17)
--- OUTSIDE RECORDS SUMMARY | 2021-10-08 10:23 | CCD ---
Author Author [facility] Organization [facility] Address Unknown Phone Unavailable Care Team Providers Care Investigation Clerk Name Role Phone LUÍS, B SRIKANTH BUNCH MAKER HAND Unavailable Unavailable LUÍS, B SRIKANTH BUNCH MAKER HAND Unavailable Unavailable LUÍS, B SRIKANTH BUNCH MAKER HAND Unavailable Unavailable LUÍS, B SRIKANTH BUNCH MAKER HAND Unavailable Unavailable LUÍS, B SRIKANTH BUNCH MAKER HAND Unavailable Unavailable LUÍS, B SRIKANTH BUNCH MAKER HAND Unavailable Unavailable LUÍS, B SRIKANTH BUNCH MAKER HAND Unavailable Unavailable LUÍS, B SRIKANTH BUNCH MAKER HAND Unavailable Unavailable LUÍS, B SRIKANTH BUNCH MAKER HAND Unavailable Unavailable LUÍS, B SRIKANTH BUNCH MAKER HAND Unavailable Unavailable LUÍS, B SRIKANTH BUNCH MAKER HAND Unavailable Unavailable LUÍS, B SRIKANTH BUNCH MAKER HAND Unavailable Unavailable LUÍS, B SRIKANTH BUNCH MAKER HAND Unavailable Unavailable LUÍS, B SRIKANTH BUNCH MAKER HAND Unavailable Unavailable LUÍS, B SRIKANTH BUNCH MAKER HAND Unavailable Unavailable LUÍS, B SRIKANTH BUNCH MAKER HAND Unavailable Unavailable LUÍS, B SRIKANTH BUNCH MAKER HAND Unavailable Unavailable LUÍS, B SRIKANTH BUNCH MAKER HAND Unavailable Unavailable LUÍS, B SRIKANTH BUNCH MAKER HAND Unavailable Unavailable LUÍS, B SRIKANTH BUNCH MAKER HAND Unavailable Unavailable LUÍS, B SRIKANTH BUNCH MAKER HAND Unavailable Unavailable LUÍS, B SRIKANTH BUNCH MAKER HAND Unavailable Unavailable LUÍS, B SRIKANTH BUNCH MAKER HAND Unavailable Unavailable LUÍS, B SRIKANTH BUNCH MAKER HAND Unavailable Unavailable LUÍS, B SRIKANTH BUNCH MAKER HAND Unavailable Unavailable LUÍS, B SRIKANTH BUNCH MAKER HAND Unavailable Unavailable LUÍS, B SRIKANTH BUNCH MAKER HAND Unavailable Unavailable LUÍS, B SRIKANTH BUNCH MAKER HAND Unavailable Unavailable LUÍS, B SRIKANTH BUNCH MAKER HAND Unavailable Unavailable LUÍS, B SRIKANTH BUNCH MAKER HAND Unavailable Unavailable LUÍS, B SRIKANTH BUNCH MAKER HAND Unavailable Unavailable LUÍS, B SRIKANTH BUNCH MAKER HAND Unavailable Unavailable LUÍS, B SRIKANTH BUNCH MAKER HAND Unavailable Unavailable LUÍS, B SRIKANTH BUNCH MAKER HAND Unavailable Unavailable LUÍS, B SRIKANTH BUNCH MAKER HAND Unavailable Unavailable LUÍS, B SRIKANTH BUNCH MAKER HAND Unavailable Unavailable LUÍS, B SRIKANTH BUNCH MAKER HAND Unavailable Unavailable LUÍS, B SRIKANTH BUNCH MAKER HAND Unavailable Unavailable LUÍS, B SRIKANTH BUNCH MAKER HAND Unavailable Unavailable LUÍS, B SRIKANTH BUNCH MAKER HAND Unavailable Unavailable LUÍS, B SRIKANTH BUNCH MAKER HAND Unavailable Unavailable LUÍS, B SRIKANTH BUNCH MAKER HAND Unavailable Unavailable LUÍS, B SRIKANTH BUNCH MAKER HAND Unavailable Unavailable LUÍS, B SRIKANTH BUNCH MAKER HAND Unavailable Unavailable LUÍS, B SRIKANTH BUNCH MAKER HAND Unavailable Unavailable LUÍS, B SRIKANTH BUNCH MAKER HAND Unavailable Unavailable LUÍS, B SRIKANTH BUNCH MAKER HAND Unavailable Unavailable LUÍS, B SRIKANTH BUNCH MAKER HAND Unavailable Unavailable LUÍS, B SRIKANTH BUNCH MAKER HAND Unavailable Unavailable LUÍS, B SRIKANTH BUNCH MAKER HAND Unavailable Unavailable LUÍS, B SRIKANTH BUNCH MAKER HAND Unavailable Unavailable LUÍS, B SRIKANTH BUNCH MAKER HAND Unavailable Unavailable LUÍS, B SRIKANTH BUNCH MAKER HAND Unavailable Unavailable LUÍS, B SRIKANTH BUNCH MAKER HAND Unavailable Unavailable LUÍS, B SRIKANTH BUNCH MAKER HAND Unavailable Unavailable LUÍS, B SRIKANTH BUNCH MAKER HAND Unavailable Unavailable LUÍS, B SRIKANTH BUNCH MAKER HAND Unavailable Unavailable LUÍS, B SRIKANTH BUNCH MAKER HAND Unavailable Unavailable LUÍS, B SRIKANTH BUNCH MAKER HAND Unavailable Unavailable LUÍS, B SRIKANTH BUNCH MAKER HAND Unavailable Unavailable LUÍS, B SRIKANTH BUNCH MAKER HAND Unavailable Unavailable LUÍS, B SRIKANTH BUNCH MAKER HAND Unavailable Unavailable CONY, DANIEL PA Unavailable Unavailable [...] Unavailable CHRISTIANO, MIGUELITO CARIN PA-C Unavailable Unavailable Re-disclosure Warning The [...] by facilities licensed or operated by the [facility] Office of Mental Health; or Provided by the [facility] Office for People With Developmental Disabilities. If such information is present, then the following [facility] mandated warning applies: This information has been [...] law may result in a fine or custodial sentence or both. A general authorization for the release of medical or other information is NOT sufficient authorization for further disc losure. Family History Family Member Name Family Member Gender Family Member Status Date o f Status Description Data Source(s) Unknown Female Problem [facility] ([facility]) Unknown Female Problem [facility] ([facility]) Unknown Unknown Problem [facility] ([facility]) matrnal aunt #1 Unknown Unknown Problem [facility] ([facility]) Encounters Encounter Providers Location Date Indications Data Source(s ) Outpatient Attender: DANIEL wyatt 08/01/2021 08:25:00 AM EDT [facility] ([facility]) Outpatient Attender: CARIN ALVARADO PA-C 12/28/2020 03:36:00 PM [facility] Outpatient Attender: CARIN ALVARADO PA-C 12/20/2020 04:23:00 PM [facility] Outpatient Attender: CARIN ALVARADO PA-C 12/12/2020 04:21:00 PM [facility] Outpatient Attender: CARIN ALVARADO PA-C 11/28/2020 04:03:00 PM [facility] Outpatient Attender: CARIN ALVARADO PA-C 11/20/2020 04:24:00 PM [facility] Outpatient Attender: CARIN ALVARADO PA-C 11/09/2020 04:06:00 PM [facility] Outpatient Attender: SRIKANTH STALEY NP Physical Therapy 07:30:00 AM EST [facility] ([facility]) Outpatient Attender: CARIN ALVARADO PA-C 10/25/2020 04:45:00 PM [facility] Outpatient Attender: CARIN ALVARADO PA-C 10/12/2020 04:17:00 PM [facility] Outpatient Attender: CARIN ALVARADO PA-C 10/03/2020 10:24:00 AM [facility] Outpatient Attender: CARIN ALVARADO PA-C 09/26/2020 04:29:00 PM [facility] Outpatient Attender: CARIN ALVARADO PA-C 09/18/2020 04:47:00 PM [facility] Outpatient Attender: CARIN ALVARADO PA-C 09/12/2020 04:00:00 PM [facility] Outpatient Attender: CARIN ALVARADO PA-C 09/06/2020 10:42:00 AM [facility] Outpatient Attender: CARIN ALVARADO PA-C 08/21/2020 04:20:00 PM [facility] Outpatient Attender: CARIN ALVARADO PA-C 08/14/2020 04:02:00 PM [facility] Outpatient Attender: CARIN ALVARADO PA-C 08/06/2020 04:00:00 PM [facility] Outpatient Attender: CARIN ALVARADO PA-C 08/02/2020 04:25:00 PM [facility] Immunizations Vaccine Date Status Description Data Source(s) COVID-19 VACCINE Moderna 12/20/2020 12:00:00 AM EST completed [facility] Vaccine Series Complete: NOThis Data was Submitted to [facility] Via [employer]. INFLUENZA VIRUS VACCINE QUADRIVAL (6 MOS AND [...] 08/05/2021 12:00:00 AM EDT ORAL active [facility] ([facility], [facility]) Phenazopyridine hydrochloride 200 MG Oral Tablet [Pyridium] Pyridium 08/01/2021 12:00:00 AM EDT ORAL completed [facility] ([facility], [facility]) Fluconazole 150 MG Oral Tablet [Diflucan] Diflucan 08/01/2021 1 2:00:00 AM EDT ORAL active [facility] ([facility], [facility]) Cephalexin 500 MG Oral Tablet Cephalexin 08/01/2021 12:00:00 AM EDT ORAL completed [facility] ([facility], [facility]) Insurance Providers Payer name Policy type / Coverage type Policy ID Covered democrat ID Covered democrat's relationship to cage Policy Cage Plan Information [employer] [id number] Self [employer] Risk [employer] [facility] Workers Compensation [id number] Self [id number] R [id number] S [id number] R [id number] S [id number] ANSI-Commercial [id number] R [facility] [id number] Umr (pr) Commercial [id number] Self [id number] [employer] (pr) [facility] Part B [id number] Self [id number] ANSI-Commercial [id number] ANSI-Commercial [id number] (pr) Commercial [id number] Self [id number] ANSI-Commercial [id number] Umr (pr) Commercial [id number] Self [id number] Umr/c/[employer] Part B [id number] Self [id number] [facility] [id number] SP [id number] [facility] [id number] SP [id number] [facility] [id number] SP [id number] [employer] [id number] SP [id number] [employer] (pr) Commercial [id number] Self [id number] [employer] (pr) Commercial [id number] Self [employer] W/C [id number] SP [id number] [employer] W/C [id number] SP [id number] [employer] Commercial [id number] Self HEALTH SYSTEM [id number] SP [id number] R [id number] S [id number] SELF PAY UNAVAILABLE S UNAVAILA BLE Problems, Conditions, and Diagnoses Code Display Name Description Problem Type Effective Dates Data Source(s) F43.8 Other reactions to severe stress OTHER REACTIONS TO SEVERE STRESS Diagnosis 12/28/2020 03:36:00 PM [facility] Surgeries/Procedures Procedure Description Date Indications Data Source(s) OFFICE OUTPATIENT NEW 30 MINUTES 08/01/2021 12:00:00 A M EDT [facility] ([facility], [facility]) Results ID Date Data Source [id number] 08/01/2021 09:19:00 AM EDT [facility] ([facility], [facility]) Name Value Range Interpretation Code Description Data Ioana rce(s) Supporting Document(s) Bacteria identified in Urine by Culture Laboratory test result [facility] ([facility], [facility]) <content>FULL REPORT IN LAB NOTES (eCW a [...]
<content>CLIDAMYCIN SENSITIVE.</content>
<content></content> ID Date Data Source [id number] 10/31/2020 09:13:00 AM EST [facility] ([facility] Name Value Range Interpretation Code Description Data Ioana rce(s) Supporting Document(s) Thyrotropin [Units/volume] in Serum or Plasma by Detec tion limit <= 0.05 mIU/L 0.946 uIU/ML 0.358-3.740 [facility] ([facility] ) <content>note:<nlbl:demographic_changed> </content>
<content></content> Thyroxine (T4) free [Mass/volume] in Serum or Plasma 1.23 ng/dL 0.76- 1.46 [facility] ([facility] ) <content>note:<nlbl:demographic_changed> </content>
<content></content> Procedure Social History Code Duration Value Status Description Data Source(s ) Smoking 11/02/2020 12:00:00 AM EST Patient is a former smoker completed Patient is a former smoker [facility] ([facility] ) Vital Signs ID Date Data Source UNK Name Value Range Interpretation Code Description Data Source(s) Oxygen saturation in Arterial blood by Pulse oximetry 99 % 99 % [facility] ([facility], [facility]) Body temperature 97.9 [degF] 97.9 [degF] [facility] ([facility], [facility]) Body weight 135.00 [lb_av] 135.00 [lb_av] MEDEN T ([facility], [facility]) Body height 64 [in_i] 64 [in_i] [facility] ([facility], [facility]) 5'4" Body mass index (BMI) [Ratio] 23.2 kg/m2 23.2 k g/m2 [facility] ([facility], [facility]) Systolic blood pressure 141 mm[Hg] 141 mm[Hg] M EDENT ([facility], [facility]) Diastolic blood pressure 86 mm[Hg] 86 mm[Hg] [facility] ([facility], [facility]) Heart rate 67 /min 67 /min [facility] ([facility], [facility]) Respiratory rate 16 /min 16 /min [facility] ( [facility]) Systolic blood pressure 108 mm[Hg] 108 mm[Hg] M EDENT ([facility] ) Diastolic blood pressure 76 mm[Hg] 76 mm[Hg] [facility] ([facility] ) Heart rate 76 /min 76 /min [facility] ([facility] ) Body temperature 96.6 [degF] 96.6 [degF] [facility] ([facility] Body height 64 [in_i] 64 [in_i] [facility] ([facility] 5'4" Body weight 143.00 [lb_av] 143.00 [lb_av] MEDEN T ([facility] ) Body mass index (BMI) [Ratio] 24.5 kg/m2 24.5 k g/m2 [facility] ([facility] )
[2021-10-08 10:58] LABS: BASO % 0.4 % (0.0-1.0); EOS % 0.1 % (0.0-3.0); HEMATOCRIT 39.8 % (36.0-47.0); HEMOGLOBIN 13.3 g/dl (12.0-15.5); LYMPH # 0.9 10^3/uL (1.5-5.0); LYMPH % 13.2 % (24.0-44.0); MEAN CORPUSCULAR HEMOGLOBIN 30.6 pg (27.0-33.0); MEAN CORPUSCULAR HGB CONC 33.4 g/dl (32.0-36.5); MEAN CORPUSCULAR VOLUME 91.5 fl (80.0-96.0); MONO # 0.8 10^3/uL (0.0-0.8); MONO % 11.2 % (2.0-8.0); NEUTROPHILS % 74.8 % (36.0-66.0); PLATELET COUNT, AUTOMATED 249 10^3/uL (150-450); RED BLOOD COUNT 4.35 10^6/uL (4.00-5.40); WHITE BLOOD COUNT 6.7 10^3/uL (4.0-10.0)
[2021-10-08 11:30] LABS: HCG, SERUM QUALITATIVE NEGATIVE (NEGATIVE)
[2021-10-08 11:34] LABS: ALBUMIN 3.3 GM/DL (3.2-5.2); ALT/SGPT 24 U/L (12-78); BILIRUBIN,TOTAL 0.4 MG/DL (0.2-1.0); BLOOD UREA NITROGEN 6 MG/DL (7-18); CARBON DIOXIDE LEVEL 27 MEQ/L (21-32); CHLORIDE LEVEL 105 MEQ/L (98-107); CREATININE FOR GFR 0.71 MG/DL (0.55-1.30); GLOMERULAR FILTRATION RATE > 60.0 (>58); GLUCOSE, FASTING 105 MG/DL (70-100); POTASSIUM SERUM 3.8 MEQ/L (3.5-5.1); SODIUM LEVEL 138 MEQ/L (136-145); TOTAL PROTEIN 6.7 GM/DL (6.4-8.2)
[2021-10-08] MEDS ORDERED: NS 1,000 ML IV ONE (11:40)
[2021-10-08] MEDS ORDERED: KETOROLAC 30 MG/ML 1ML VIAL IV ONE (12:00)
--- NOTE | 2021-10-08 12:22 | REP ---
INDICATION: RUQ pain, +murphys sign, n/v COMPARISON: None. TECHNIQUE: Real time reed scale ultrasound examination using curved array transducer. FINDINGS: Liver is normal in contour, size, and echogenicity without focal hepatic lesions identified. Pancreas is incompletely evaluated due to interposed bowel gas. The gallbladder is normal and without gallstones, wall thickening, or pericholecystic fluid. No biliary ductal dilatation is appreciated and the common bile duct measures 3.4 mm diameter. Right kidney is normal in reniform shape without hydronephrosis and measures 10.6 x 4.7 x 4.4 cm. No ascites in the visualized right upper quadrant. IMPRESSION: Normal limited right upper quadrant ultrasound <Electronically signed by Irving Henriquez > 10/08/21 [id number]
[2021-10-08 12:53] VITALS: BP 144/90
== END 2021-10-08 13:32 | disposition home or self-care (01) ==
LOC: M ED 08:49
DX: R10.11 Right upper quadrant pain (principal); R11.2 Nausea with vomiting, unspecified; E05.00 Thyrotoxicosis with diffuse goiter without thyrotoxic crisis or storm; Z87.440 Personal history of urinary (tract) infections; Z88.2 Allergy status to sulfonamides; Z79.899 Other long term (current) drug therapy; Z79.890 Hormone replacement therapy
CPT/HCPCS: 76705; 80053; 81001; 84703; 85025; 96361; 96374; 99284; J1885

== ENCOUNTER → 2021-12-10 | Outpatient (CLI) | payer OTHER ==
[~2021-12-10] MED LIST changes: +MELA5TAB10 PO; +PRAZ1CAP PO
[2021-12-10 15:21] LABS: FREE T4 1.13 NG/DL (0.76-1.46); THYROID STIMULATING HORMONE 2.93 uIU/ML (0.358-3.740)
== END ==
LOC: M PLALAB 10:08
PROVIDERS: ATTEND Nurse Practitioner Family
DX: E89.0 Postprocedural hypothyroidism (principal)

== ENCOUNTER → 2022-02-14 | Outpatient (CLI) | payer OTHER | LOC: M WHC 10:14 | PROVIDERS: ATTEND Nurse Practitioner Adult Health | DX: Z12.31 Encounter for screening mammogram for malignant neoplasm of breast (principal); Z80.3 Family history of malignant neoplasm of breast ==

== ENCOUNTER → 2022-04-11 | Outpatient (CLI) | payer OTHER ==
[~2022-04-11] MED LIST changes: +PROHANCE 279.3MG/ML 15ML VIAL As Ordered ONE
== END ==
LOC: M RAD 08:53
PROVIDERS: ATTEND Nurse Practitioner Adult Health
DX: D35.00 Benign neoplasm of unspecified adrenal gland (principal)
CPT/HCPCS: 74183; A9576

== ENCOUNTER → 2022-07-13 | Outpatient (CLI) | payer OTHER ==
[~2022-07-13] MED LIST changes: -PROHANCE 279.3MG/ML 15ML VIAL As Ordered ONE
== END ==
LOC: M LABSMTC 10:25
PROVIDERS: ATTEND Anesthesiology
DX: Z01.818 Encounter for other preprocedural examination (principal); Z11.52 Encounter for screening for COVID-19

== ENCOUNTER 2022-07-16 11:06 | Day surgery (SDC) | payer OTHER ==
[~2022-07-16] VITALS: Ht 162.6 cm; Wt 65.3 kg
[~2022-07-16 11:06] MED LIST changes: +NS 1,000 ML IV ONE
[2022-07-16] MEDS ORDERED: propofoL 200 MG/20 ML VIAL As Ordered ONE ×2 (12:10→12:25)
[2022-07-16] MEDS ORDERED: LIDOCAINE 2% 100MG/5ML SDV (FOR ANES.) As Ordered ONE (12:10)
[2022-07-16 12:51] VITALS: BP 117/76
== END 2022-07-16 13:00 | disposition home or self-care (01) ==
LOC: M OPP 11:06
PROVIDERS: ATTEND Internal Medicine Gastroenterology
DX: R19.5 Other fecal abnormalities (principal); K64.0 First degree hemorrhoids; E05.00 Thyrotoxicosis with diffuse goiter without thyrotoxic crisis or storm; Z87.891 Personal history of nicotine dependence; Z79.899 Other long term (current) drug therapy; Z88.2 Allergy status to sulfonamides

== ENCOUNTER → 2023-02-09 | Outpatient (CLI) | payer OTHER ==
[~2023-02-09] MED LIST changes: -NS 1,000 ML IV ONE
[2023-02-09 14:13] LABS: FREE T4 1.07 NG/DL (0.89-1.76); THYROID STIMULATING HORMONE 11.64 uIU/ML (0.55-4.78)
== END ==
LOC: M PLALAB 10:59
PROVIDERS: ATTEND Nurse Practitioner Family
DX: E89.0 Postprocedural hypothyroidism (principal)

== ENCOUNTER 2023-05-04 09:59 | Emergency (ER) | payer OTHER ==
[~2023-05-04] VITALS: Ht 162.6 cm; Wt 65.9 kg
[2023-05-04 09:59] VITALS: TEMP 98.2
[2023-05-04] MEDS ORDERED: KETOROLAC 30 MG/ML 1ML VIAL IM ONE (12:40)
[2023-05-04] MEDS ORDERED: IBUP-1022 PO (12:48)
[2023-05-04 13:15] VITALS: BP 123/82; O2SAT 99
== END 2023-05-04 13:36 | disposition home or self-care (01) ==
LOC: M ED 09:59
DX: S83.412A Sprain of medial collateral ligament of left knee, initial encounter (principal); E03.9 Hypothyroidism, unspecified; Z88.2 Allergy status to sulfonamides; Z79.899 Other long term (current) drug therapy; Z79.1 Long term (current) use of non-steroidal anti-inflammatories (NSAID); Y93.89 Activity, other specified
CPT/HCPCS: 73564; 96372; 99284; J1885

== ENCOUNTER → 2023-06-09 | Outpatient (CLI) | payer OTHER ==
[~2023-06-09] MED LIST changes: +IBUP-1022 PO
[2023-06-09 15:56] LABS: FREE T4 1.47 NG/DL (0.89-1.76)
[2023-06-09 15:57] LABS: THYROID STIMULATING HORMONE 0.544 uIU/ML (0.55-4.78)
== END ==
LOC: M PLALAB 12:59
PROVIDERS: ATTEND Nurse Practitioner Family
DX: E89.0 Postprocedural hypothyroidism (principal)

== ENCOUNTER → 2024-02-01 | Outpatient (REF) | payer BC | LOC: M PLALAB 16:11 | PROVIDERS: ATTEND Obstetrics & Gynecology | DX: R10.2 Pelvic and perineal pain (principal); Z53.9 Procedure and treatment not carried out, unspecified reason ==

== ENCOUNTER → 2024-02-01 | Outpatient (REF) | payer BC ==
[2024-02-09 15:05] LABS: APPEARANCE, URINE CLEAR (CLEAR); COLOR, URINE YELLOW (YELLOW); SPECIFIC GRAVITY URINE AUTO 1.014 (1.002-1.035)
[2024-02-09 15:06] LABS: BACTERIA, URINE AUTO NEGATIVE (NEGATIVE); BILIRUBIN, URINE AUTO NEGATIVE (NEGATIVE); BLOOD, URINE BLOOD NEGATIVE (NEGATIVE); GLUCOSE, URINE (UA) AUTO NEGATIVE (NEGATIVE); KETONE, URINE AUTO NEGATIVE (NEGATIVE); LEUKOCYTE ESTERASE, URINE AUTO NEGATIVE (NEGATIVE); NITRITE, URINE AUTO NEGATIVE (NEGATIVE); PROTEIN, URINE AUTO NEGATIVE (NEGATIVE); RBC, URINE AUTO 0 /HPF (0-3); UROBILINOGEN, URINE AUTO 0.2 mg/dL (0.0-2.0); WBC, URINE AUTO 0 /HPF (0-3)
[2024-02-09 15:07] LABS: SQUAMOUS EPITHELIAL CELL UR AU 0 /HPF (0-6)
== END ==
LOC: M LAB REF 16:00
PROVIDERS: ATTEND Obstetrics & Gynecology
DX: R10.2 Pelvic and perineal pain (principal)

== ENCOUNTER → 2024-03-08 | Outpatient (CLI) | payer BC, OTHER ==
[2024-03-08 12:07] LABS: HEMATOCRIT 41.4 % (36.0-47.0); HEMOGLOBIN 13.5 g/dl (12.0-15.5); MEAN CORPUSCULAR HEMOGLOBIN 31.3 pg (27.0-33.0); MEAN CORPUSCULAR HGB CONC 32.6 g/dl (32.0-36.5); MEAN CORPUSCULAR VOLUME 95.8 fl (80.0-96.0); PLATELET COUNT, AUTOMATED 239 10^3/uL (150-450); RED BLOOD COUNT 4.32 10^6/uL (4.00-5.40); WHITE BLOOD COUNT 4.2 10^3/uL (4.0-10.0)
[2024-03-08 12:29] LABS: IRON (FE) 50 UG/DL (50-170)
[2024-03-08 12:30] LABS: PERCENT SATURATION 16.5 % (13.2-45.0); TOTAL IRON BINDING CAPACITY 303 UG/DL (250-425)
[2024-03-08 12:31] LABS: ALBUMIN 3.6 G/DL (3.2-5.2); ALKALINE PHOSPHATASE 77 U/L (46-116); ALT/SGPT 30 U/L (7.0-40); AST/SGOT 37 U/L (<34); BILIRUBIN,TOTAL 0.4 MG/DL (0.3-1.2); BLOOD UREA NITROGEN 7 MG/DL (9-23); CARBON DIOXIDE LEVEL 32 MMOL/L (20-31); CHLORIDE LEVEL 105 MMOL/L (98-107); CHOLESTEROL LEVEL 260 MG/DL (<200); CHOLESTEROL RISK RATIO 1.95 (<5); CREATININE FOR GFR 0.65 MG/DL (0.55-1.30); FERRITIN 139.6 NG/ML (7.3-270.7); FOLLICLE STIMULATING HORMONE 31.8 mIU/ML; GLOMERULAR FILTRATION RATE > 60.0 (>58); GLUCOSE, FASTING 79 MG/DL (60-100); HDL CHOLESTEROL 133.2 MG/DL (>40); LDL CHOLESTEROL 105.2 MG/DL (<100); NON-HDL-C 126.8 MG/DL; POTASSIUM SERUM 3.9 MMOL/L (3.5-5.1); SODIUM LEVEL 141 MMOL/L (136-145); THYROID STIMULATING HORMONE 0.166 uIU/ML (0.55-4.78); TOTAL 25(OH) VITAMIN D 16.1 NG/ML (20.0-100.0); TOTAL PROTEIN 7.1 G/DL (5.7-8.2); TRIGLYCERIDES LEVEL 108 MG/DL (<150)
[2024-03-08 12:32] LABS: FREE T4 1.57 NG/DL (0.89-1.76)
== END ==
LOC: M WUC 09:03
PROVIDERS: ATTEND Nurse Practitioner Adult Health
DX: Z00.00 Encounter for general adult medical examination without abnormal findings (principal); R23.2 Flushing; R61 Generalized hyperhidrosis; E05.00 Thyrotoxicosis with diffuse goiter without thyrotoxic crisis or storm; Z13.21 Encounter for screening for nutritional disorder

== ENCOUNTER → 2024-03-23 | Outpatient (CLI) | payer OTHER | LOC: M WHC 07:51 | PROVIDERS: ATTEND Obstetrics & Gynecology | DX: N93.9 Abnormal uterine and vaginal bleeding, unspecified (principal) ==

== ENCOUNTER → 2024-05-17 | Outpatient (CLI) | payer OTHER ==
[2024-05-17 13:19] LABS: THYROID STIMULATING HORMONE 0.319 uIU/ML (0.55-4.78)
[2024-05-17 13:20] LABS: FREE T4 1.39 NG/DL (0.89-1.76)
== END ==
LOC: M PLALAB 11:01
PROVIDERS: ATTEND Nurse Practitioner Family
DX: E89.0 Postprocedural hypothyroidism (principal)

== ENCOUNTER → 2024-11-09 | Outpatient (REF) | payer OTHER | LOC: M SFHCDERM 17:30 | PROVIDERS: ATTEND Physician Assistant | DX: B35.1 Tinea unguium (principal) ==

== ENCOUNTER → 2024-11-21 | Outpatient (REF) | payer OTHER ==
[2024-11-21 13:19] LABS: THYROID STIMULATING HORMONE 12.886 uIU/ML (0.55-4.78)
[2024-11-21 13:20] LABS: FREE T4 1.04 NG/DL (0.89-1.76)
== END ==
LOC: M LABWUC 11:40
PROVIDERS: ATTEND Nurse Practitioner Family
DX: E89.0 Postprocedural hypothyroidism (principal)

== ENCOUNTER → 2025-03-21 | Outpatient (CLI) | payer OTHER ==
[2025-03-21 12:44] LABS: FREE T4 1.25 NG/DL (0.89-1.76); THYROID STIMULATING HORMONE 6.423 uIU/ML (0.55-4.78)
== END ==
LOC: M WUC 08:24
PROVIDERS: ATTEND Nurse Practitioner Family
DX: E89.0 Postprocedural hypothyroidism (principal)

== ENCOUNTER → 2025-06-12 | Outpatient (CLI) | payer OTHER | LOC: M RAD 07:33 | PROVIDERS: ATTEND Nurse Practitioner Adult Health | DX: R10.11 Right upper quadrant pain (principal); K76.0 Fatty (change of) liver, not elsewhere classified ==